=== PATIENT | male | born 1950 | race Caucasian/White ===

== ENCOUNTER → 2017-08-23 | Outpatient (CLI) | payer MEDICARE, BC, OTHER ==
[~2017-08-23] MED LIST: DIATR MEGLU/DIATRIZOATE SODIUM 120 ML BTL
== END | disposition home or self-care (01) ==
LOC: RAD 15:01
DX: K94.23 Gastrostomy malfunction (principal); Y83.3 Surgical operation with formation of external stoma as the cause of abnormal reaction of the patient, or of later complication, without mention of misadventure at the time of the procedure
CPT/HCPCS: 74240

== ENCOUNTER → 2017-12-07 | Outpatient (CLI) | payer MEDICARE, BC | END | disposition home or self-care (01) | LOC: U/S 10:56 | DX: K74.60 Unspecified cirrhosis of liver (principal) | CPT/HCPCS: 76700 ==

== ENCOUNTER → 2018-06-07 | Outpatient (CLI) | payer MEDICARE, BC | END | disposition home or self-care (01) | LOC: U/S 11:15 | DX: K74.60 Unspecified cirrhosis of liver (principal) | CPT/HCPCS: 76705 ==